=== PATIENT | female | born 1960 | race Caucasian/White ===

== ENCOUNTER 2019-05-17 13:09 | Emergency (ER) | payer BC ==
[~2019-05-17] VITALS: Ht 157.5 cm; Wt 128.4 kg
[2019-05-17] MEDS ORDERED: TOPROL XL100 MG PO (13:30)
[2019-05-17] MEDS ORDERED: UNKNOWN BP MED (13:31)
[2019-05-17 16:33] VITALS: BP 149/93
== END 2019-05-17 16:34 | disposition home or self-care (01) ==
LOC: M.ERS 13:09
DX: M25.511 Pain in right shoulder (principal); M25.531 Pain in right wrist; I10 Essential (primary) hypertension; Z88.8 Allergy status to other drugs, medicaments and biological substances; Z88.5 Allergy status to narcotic agent; Z88.1 Allergy status to other antibiotic agents; Z90.710 Acquired absence of both cervix and uterus; Z90.49 Acquired absence of other specified parts of digestive tract